=== PATIENT | female | born 1950 | race Caucasian/White ===

== ENCOUNTER 2018-12-14 11:30 | Emergency (ER) | payer MEDICARE ==
[~2018-12-14] VITALS: Ht 167.6 cm; Wt 83.0 kg
[2018-12-14 11:31] VITALS: BP 117/75
[2018-12-14] MEDS ORDERED: METHOCARBAMOL 750 MG TABLET ONE (12:12)
[2018-12-14] MEDS ORDERED: KETOROLAC 30 MG/1 ML ONE (12:13)
[2018-12-14] MEDS ORDERED: OXYcodone/APAP 5/325MG TABLET ONE (12:13)
[2018-12-14] MEDS ORDERED: KETOROLAC 30 MG/1 ML IM ONE (12:30)
[2018-12-14] MEDS ORDERED: OXYcodone/APAP 5/325MG TABLET PO ONE (12:30)
[2018-12-14] MEDS ORDERED: METHOCARBAMOL 750 MG TABLET PO ONE (12:30)
--- NOTE | 2018-12-14 12:30 | NUR ---
MEDICATED FOR LOWER BACK PAIN, PAIN IS 10/10
--- NOTE | 2018-12-14 13:00 | NUR ---
Patient/Caregiver given discharge instructions and they have confirmed that they understand the instructions. Patient ambulatory with steady gait.
== END 2018-12-14 13:15 | disposition home or self-care (01) ==
LOC: ED 12:53
DX: S39.012A Strain of muscle, fascia and tendon of lower back, initial encounter (principal); M46.1 Sacroiliitis, not elsewhere classified; Z90.710 Acquired absence of both cervix and uterus; X58.XXXA Exposure to other specified factors, initial encounter; Y93.89 Activity, other specified; Y92.89 Other specified places as the place of occurrence of the external cause; Y99.8 Other external cause status
CPT/HCPCS: 72110; 96372; 99283; J1885